=== PATIENT | male | born 1940 | race Caucasian/White ===

== ENCOUNTER 2016-06-26 14:48 | Emergency (ER) | payer OTHER, MEDICARE ==
[2016-06-26 14:54] VITALS: BP 133/71; PULSE 54; RESP 17; TEMP 97.7; O2SAT 94
--- NOTE | 2016-06-26 15:03 | EDPHY ---
H & P Time Seen by Provider: 06/26/16 15:01 HPI/ROS: Chief complaint. Arm injury HPI. Patient is 76-year-old male presents emergency department shortly after dropping a 200 lb wall bed on his right arm and then was pressed against a foot stool. He complains of pain to the upper forearm but no pain to the elbow upper arm or shoulder. No pain to the hand or wrist. He can flex and extend and supinate pronate without difficulty. He feels the pain is in the muscle on the dorsum of his upper forearm. No previous fracture to this area. Patient denies any other injuries ROS Constitutional. no fever/chills, no weakness Eyes. no problems with vision ENT. no sore throat, no nasal drainage Cardiovascular. no chest pain Respiratory. no shortness of breath, no cough Abdominal. no abdominal pain, no nausea/vomiting, no diarrhea . no problems urinating MS. Right forearm pain Skin. no rash Lymph. no swollen glands Neuro. no headache, no dizziness, no difficulty walking or with speech Past Medical/Surgical History: Healthy Social History: , nonsmoker, no alcohol Smoking Status: Never smoked Physical Exam: General Appearance: Alert well-developed male mild distress vital signs are stable. Eyes: Pupils equal and round no pallor or injection. ENT, Mouth: Mucous membranes are moist. Respiratory: There are no retractions, lungs are clear to auscultation. Cardiovascular: Regular rate and rhythm. Gastrointestinal: Abdomen is soft and nontender, no masses, bowel sounds normal. Neurological: Awake and alert, sensory and motor exams grossly normal. Skin: Warm and dry, no rashes. Musculoskeletal: Neck is supple nontender. Extremities right arm shows good range of motion about the shoulder and elbow. Also nontender to the wrist and hand. There is tenderness to the proximal forearm on the dorsum. No obvious swelling or deformity. Pulses are full and equal. Sensation is normal. Psychiatric: Patient is oriented X 3, there is no agitation. Constitutional: Initial Vital Signs Temperature (C) 36.5 C 06/26/16 14:52 Heart Rate 54 L 06/26/16 14:52 Respiratory Rate 17 06/26/16 14:52 Blood Pressure 133/71 H 06/26/16 14:52 O2 Sat (%) 94 06/26/16 14:52 O2 Delivery Mode Room Air Allergies/Adverse Reactions: No Known Allergies Allergy (Unverified 06/26/16 14:51) Home Medications: Medication Instructions Recorded NK [No Known Home Meds] 06/26/16 Medical Decision Making - Diagnostics Imaging: X-ray right forearm is interpreted by me is normal. No evidence for fracture or dislocation ED Course/Re-evaluation: Re-evaluation at 3:30 p.m.. Patient is stable. Patient and I discussed imaging study results, treatment plan, criteria for return, importance of follow -up further evaluation. He expresses understanding and agreement. Patient is offered a sling but declines Differential Diagnosis: I considered fracture, dislocation, muscle bruise. Muscle and soft tissue injury appears to be the diagnosis Departure - Departure Disposition: Home, Routine, Self-Care Clinical Impression: Contusion Qualifiers: Encounter type: initial encounter Contusion area: forearm Condition: Good Instructions: Contusion in Adults (ED) Additional Instructions: Ice and elevation next 24 hours. Ibuprofen 600 mg every 6 hours for discomfort. Activity as tolerated. Return for worsening pain, swelling. Recheck in 3-4 days if not improving Referrals: Cesar Tom MD [Primary Care Provider] - 3-4 days, if not improved
== END 2016-06-26 15:40 | disposition home or self-care (01) ==
DX: S40.021A Contusion of right upper arm, initial encounter (principal); W20.8XXA Other cause of strike by thrown, projected or falling object, initial encounter

== ENCOUNTER → 2016-11-04 | Outpatient (CLI) | payer OTHER, MEDICARE ==
[~2016-11-04] MED LIST: GADOBUTROL 10 ML VIAL IVP ONE
== END ==
LOC: FIMAGING 06:56
PROVIDERS: ATTEND Internal Medicine
DX: R10.2 Pelvic and perineal pain (principal); K57.30 Diverticulosis of large intestine without perforation or abscess without bleeding; M77.9 Enthesopathy, unspecified
CPT/HCPCS: 72197; A9585